=== PATIENT | female | born 1985 | race Two or more races ===

== ENCOUNTER 2024-01-01 12:39 | Inpatient (IN) | payer OTHER ==
[~2024-01-01] VITALS: Ht 149.9 cm; Wt 70.3 kg
[2024-01-01] MEDS ORDERED: PRENATAL TABLE1 EAC4 PO (12:43)
[2024-01-01] MEDS ORDERED: RINGERS SOLUTION,LACTATED 1,000 ML IV SCH (12:45)
[2024-01-01] MEDS ORDERED: OXYTOCIN 1,000 ML IV ONE (12:45)
[2024-01-01 13:11] LABS: HEMATOCRIT 36.6 % (36.0-45.00); HEMOGLOBIN 12.2 g/dL (12.0-15.00); MEAN CELL VOLUME 85.2 fL (80.00-100.00); MEAN CORPUSCULAR HEMOGLOBIN 28.5 pg (27.00-32.0); MEAN CORPUSCULAR HGB CONC 33.4 g/dl (32.0-36.0); PLATELET COUNT 274 K/uL (150-450); RED CELL DISTRIBUTION WIDTH 14.4 % (11.5-14.5)
[2024-01-01] MEDS ORDERED: OXYTOCIN 500 ML IV ONE (13:30)
[2024-01-01 13:34] LABS: URINE APPEARANCE Clear; URINE BILIRRUBIN Negative (NEGATIVE); URINE BLOOD Moderate; URINE COLOR Yellow; URINE GLUCOSE Negative (NEGATIVE); URINE LEUKOCYTE Trace; URINE NITRATE Negative; URINE PROTEIN Negative (NEGATIVE); URINE UROBILINOGEN 0.2 E.U./dl
[2024-01-01 13:38] LABS: URINE BACTERIA 3146.2 uL (0.0-1933); URINE EPITHELIAL CELLS 57.5 uL (0.0-38.8); URINE RBC 3.5 uL (0.0-20.8); URINE WBC 89.3 uL (0.0-23.2)
[2024-01-01 13:55] LABS: INR < 0.93; PARTIAL THROMBOPLASTIN TIME 27.9 SECONDS (22.0-34.0); PROTHROMBIN TIME 9.1 SECONDS (9.0-11.5)
[2024-01-01 14:03] LABS: ALBUMIN 2.8 gm/dL (3.4-5.0); BILIRUBIN TOTAL 0.26 mg/dL (0.3-1.2); CALCIUM 9.4 mg/dL (8.5-10.1); CREATININE SERUM 0.65 mg/dL (0.55-1.02); GFR 102.01; GLOBULINA 4.3 G/DL (2.4-3.5); POTASSIUM 4.73 mEq/L (3.5-5.1); TOTAL PROTEIN 7.1 gm/dL (6.4-8.2)
[2024-01-01] MEDS ORDERED: MEPERIDINE HCL/PF 50 MG/ML VIAL IV ONE (20:30)
[2024-01-01] MEDS ORDERED: PROMETHAZINE HCL 50 MG/ML AMPUL IM ONE (20:30)
[2024-01-01] MEDS ORDERED: NALOXONE HCL 0.4 MG/ML AMPUL IV ONE (23:15)
[2024-01-02] MEDS ORDERED: METHYLERGONOVINE MALEATE 0.2 MG/ML AMPUL ONE (02:38)
[2024-01-02] MEDS ORDERED: CARBOPROST TROMETHAMINE 250 MCG/ML AMPUL IM ONE (02:47)
[2024-01-02] MEDS ORDERED: KETOROLAC TROMETHAMINE 60 MG VIAL IM ONE ×2 (03:15→04:03)
[2024-01-02] MEDS ORDERED: PROMETHAZINE HCL 25 MG/ML AMPUL IV SCH (05:00)
[2024-01-02] MEDS ORDERED: MEPERIDINE HCL/PF 50 MG/ML VIAL IV SCH (05:00)
[2024-01-02 06:55] LABS: ABG PH 7.298 (7.35-7.45); ABG pCO2 43.9 mmHg (35-45)
[2024-01-02 06:56] LABS: ABG PO2 29.9 mmHg (80-100); BASE EXCESS -5.3 mmol/l; SaO2 47.9 %; Tco2 22.4 mmol/l; o2 21 %
[2024-01-02] MEDS ORDERED: DIPHENHYDRAMINE HCL 25 MG CAPSULE PO ONE (08:10)
[2024-01-02] MEDS ORDERED: DIPHENHYDRAMINE HCL 25 MG CAPSULE PO STA (08:11)
[2024-01-02] MEDS ORDERED: OxyCODONE HCL/APAP UD (PERCOCET) PO SCH (09:00)
[2024-01-02] MEDS ORDERED: DOCUSATE CALCIUM 240 MG CAPSULE PO SCH (09:00)
[2024-01-02] MEDS ORDERED: SIMETHICONE 125 MG CAPSULE PO SCH (09:00)
[2024-01-02 09:06] LABS: HEMATOCRIT 30.8 % (36.0-45.00); HEMOGLOBIN 10.3 g/dL (12.0-15.00); MEAN CELL VOLUME 86.7 fL (80.00-100.00); MEAN CORPUSCULAR HEMOGLOBIN 29.1 pg (27.00-32.0); MEAN CORPUSCULAR HGB CONC 33.6 g/dl (32.0-36.0); PLATELET COUNT 249 K/uL (150-450); RED BLOOD COUNT 3.55 M/uL (4.00-6.00); RED CELL DISTRIBUTION WIDTH 14.1 % (11.5-14.5)
[2024-01-02] MEDS ORDERED: ACETAMINOPHEN 500 MG GEL..CAP PO SCH (12:00)
[2024-01-02] MEDS ORDERED: DIPHENHYDRAMINE HCL 25 MG CAPSULE PO NR (14:00)
[2024-01-03] MEDS ORDERED: IBUprofen 800 MG TABLET PO SCH (10:00)
[2024-01-04] MEDS ORDERED: ACETAMINOPHEN 500 MG GEL..CAP PO ONE (00:04)
[2024-01-05] MEDS ORDERED: SURFAK240 M1 PO (09:37)
[2024-01-05] MEDS ORDERED: IBU800 MG PO (09:37)
== END 2024-01-05 13:08 | disposition home or self-care (01) | DRG 788 ==
LOC: OB/GYN 12:39 → LDR 12:39 → OB/GYN 01-02 03:34
PROVIDERS: ADMIT Specialist; ATTEND Specialist
PROC: 4A1HXCZ Monitoring of Products of Conception, Cardiac Rate, External Approach (ICD-10-PCS; 2024-01-01)
PROC: 10D00Z1 Extraction of Products of Conception, Low, Open Approach (ICD-10-PCS; principal; 2024-01-02 07:00)
DX: O82 Encounter for cesarean delivery without indication (principal); O62.1 Secondary uterine inertia; Z3A.39 39 weeks gestation of pregnancy; Z37.0 Single live birth; Z20.822 Contact with and (suspected) exposure to COVID-19